=== PATIENT | female | born 1965 | race Caucasian/White ===

== ENCOUNTER → 2016-12-30 | Outpatient (CLI) | payer BC | LOC: MW.CHOBGYN 08:13 | PROVIDERS: ATTEND Nurse Practitioner Women's Health | DX: Z11.3 Encounter for screening for infections with a predominantly sexual mode of transmission (principal); E78.5 Hyperlipidemia, unspecified; R35.0 Frequency of micturition | CPT/HCPCS: 36415; 80061; 81001; 86592; 87086; 87389; 87491; 87591; G0478; 80305 ==

== ENCOUNTER 2017-07-09 16:28 | Emergency (ER) | payer BC ==
[2017-07-09] MEDS ORDERED: Azithromycin 250 MG Tab PO ONE (17:27)
[2017-07-09] MEDS ORDERED: cefTRIAXone 250 MG Vial IM ONE (17:27)
--- NOTE | 2017-07-09 17:34 | EDM.PDOC ---
ED HPI GENERAL MEDICAL PROBLEM - General Chief Complaint: Genitourinary Problem Stated Complaint: UNK Time Seen by Provider: 07/09/17 17:04 - History of Present Illness INITIAL COMMENTS - FREE TEXT/NARRATIVE: HISTORY AND PHYSICAL: History of present illness: The patient is a healthy 51-year-old female with a history of hypertension who presents for evaluation of a lesion in her pubic area that she is concerned about. She noticed this lesion more than a week ago and she thought maybe was an ingrown hair so she squeezed it. Nothing came out and the lesion persisted. It has not been painful and it has not changed or grown in size. She is worried that is an STD. The patient has not had any systemic complaints of fever chills abdominal pain nausea vomiting diarrhea or urinary complaints. She has not had any vaginal discharge or abnormal discharge or abnormal bleeding from her vagina. The patient only has a history of a in the past and also did an Essure and has not had a period since. She thinks she might be going through perimenopausal symptoms but it is unclear as she is going through a divorce after over 30 years of marriage. The patient does admit that she did have sexual intercourse with her soon-to-be ex- about 5 weeks ago and she is concerned she might have contracted something as a result of that even that she has no symptomatology. She is very worried. She would like STD testing. She has never had an STD in the past and again this lesion that she is concerned about it is not painful or evolving Review of systems: As per history of present illness and below otherwise all systems reviewed and negative. Past medical history: As per history of present illness and as reviewed below otherwise noncontributory. Surgical history: As per history of present illness and as reviewed below otherwise noncontributory. Social history: No reported history of drug or alcohol abuse. Family history: As per history of present illness and as reviewed below otherwise noncontributory. Physical exam: HEENT: Atraumatic, normocephalic, negative for conjunctival pallor or scleral icterus, mucous membranes moist,neck supple, nontender, trachea midline. Lungs: Clear to auscultation, breath sounds equal bilaterally, chest nontender. Heart: S1S2, regular, rate and rhythm no overt murmurs Abdomen: Soft, nondistended, nontender. Negative for masses or hepatosplenomegaly. Negative for costovertebral tenderness. Pelvis: Stable nontender. Genitourinary: The perineal area was examined and there is a small skin tag like lesion with a stalk present in the center of the mons pubis area which is nonvesicular nontender and there is no erythema fluctuance or soft tissue swelling in the region. It measures approximately 0.5 cm Rectal: Deferred. Extremities: Atraumatic, negative for cords or calf pain. Neurovascular unremarkable. Neuro: Awake, alert, oriented. Cranial nerves II through XII unremarkable. Cerebellum unremarkable. Motor and sensory unremarkable throughout. Exam nonfocal. Diagnostics: Patient requested GC and chlamydia testing Therapeutics: Patient requested treatment with Rocephin and Zithromax given I discussed with this patient that this could be an early genital warts or just a simple skin tag but considering the circumstances and location I think it should be seen and removed by primary care. She is seen in our clinics regularly for her other medical problems so I will refer her back there for removal. She is comfortable with this care plan. Impression: Perineal lesion stable Definitive disposition and diagnosis as appropriate pending reevaluation and review of above. 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: , Other (See Below) Other OB/BYN History: C sections - Infectious Disease History Infectious Disease History: Reports: Chicken Pox - Past Surgical History Musculoskeletal Surgical History: Reports: Other (See Below) Other Musculoskeletal Surgeries/Procedures:: neck surgery Social & Family History - Tobacco Use Smoking Status *Q: Current Every Day Smoker Years of Tobacco use: 30 Packs/Tins Daily: 0.8 - Caffeine Use Caffeine Use: Reports: Coffee, Soda - Recreational Drug Use Recreational Drug Use: No ED ROS GENERAL - Review of Systems Review Of Systems: ROS reveals no pertinent complaints other than HPI. ED EXAM, GENERAL - Physical Exam Exam: See Below (See dictation) Course - Vital Signs Last Recorded V/S: Last Vital Signs Temp Pulse 65 07/09/17 16:36 Resp 12 09/10/17 16:36 BP 168/88 H 07/09/17 16:36 Pulse Ox 95 07/09/17 16:36 - Orders/Labs/Meds Orders: Active Orders 24 hr Category Date Time Status CHLAMYDIA TRACHOMATIS/GC AMPLF Stat Lab 07/09/17 17:26 Ordered Meds: Medications Discontinued Medications Generic Name Dose Route Start Last Admin Trade Name Freq PRN Reason Stop Dose Admin Azithromycin 1,000 mg 07/09/17 17:27 Zithromax PO 07/09/17 17:28 ONETIME ONE Ceftriaxone Sodium 250 mg 07/09/17 17:27 Rocephin IM 07/09/17 17:28 ONETIME ONE Departure - Departure Time of Disposition: 17:33 Disposition: Home, Self-Care 01 Condition: Good Clinical Impression: Skin lesion - Discharge Information Referrals: Ashwini Freitas DIRECTOR OF CASINO [Primary Care Provider] - Additional Instructions: The following information is given to patients seen in the emergency department who are being discharged to home. This information is to outline your options for follow-up care. We provide all patients seen in our emergency department with a follow-up referral. The need for follow-up, as well as the timing and circumstances, are variable depending upon the specifics of your emergency department visit. If you don't have a primary care physician on staff, we will provide you with a referral. We always advise you to contact your personal physician following an emergency department visit to inform them of the circumstance of the visit and for follow-up with them and/or the need for any referrals to a consulting specialist. The emergency department will also refer you to a specialist when appropriate. This referral assures that you have the opportunity for followup care with a specialist. All of these measure are taken in an effort to provide you with optimal care, which includes your followup. Under all circumstances we always encourage you to contact your private physician who remains a resource for coordinating your care. When calling for followup care, please make the office aware that this follow-up is from your recent emergency room visit. If for any reason you are refused follow-up, please contact the [facility] emergency department at and ask to speak to the emergency department charge nurse. [facility] [address] [place] [address] Please contact your provider in the clinic to have reevaluation and removal of the skin lesion that you are presented with. Please return to ER as needed and as discussed. Remember that he will be contacted with your testing results if they show a positive test. - My Orders Last 24 Hours: My Active Orders 07/09/17 17:26 CHLAMYDIA TRACHOMATIS/GC AMPLF Stat - Assessment/Plan Last 24 Hours: My Active Orders 07/09/17 17:26 CHLAMYDIA TRACHOMATIS/GC AMPLF Stat
[2017-07-09] MEDS ORDERED: Lidocaine 2% 5 ML SDV INJECT ONE (17:42)
[2017-07-09] MEDS ORDERED: Lidocaine 1% 20 ML MDV INJECT ONE (17:45)
[2017-07-09] MEDS ORDERED: Lidocaine 1% 2 ML ONE (17:49)
[2017-07-09] MEDS ORDERED: Lidocaine 1% PF 2 ML SDV INJECT ONE (17:53)
[2017-07-09 18:50] VITALS: BP 165/78
== END 2017-07-09 18:15 | disposition home or self-care (01) ==
LOC: MW.ED 16:28
DX: L98.9 Disorder of the skin and subcutaneous tissue, unspecified (principal); I10 Essential (primary) hypertension; E78.00 Pure hypercholesterolemia, unspecified; F17.210 Nicotine dependence, cigarettes, uncomplicated
CPT/HCPCS: 87491; 87591; 96372; 99283; A9270; J0696

== ENCOUNTER 2021-08-16 10:54 | Day surgery (SDC) | payer BC ==
[~2021-08-16 10:54] MED LIST: Albuterol 0.083% 2.5 MG/3 ML Neb Soln NEB PRN; HYDROmorphone 1 MG/ML Syringe IVPUSH PRN; Metoclopramide 10 MG/2 ML SDV IVPUSH PRN; Morphine 2 MG/ML SYRINGE IVPUSH PRN; Naloxone 0.4 MG/ML SDV IVPUSH PRN; Ondansetron 4 MG/2 ML SDV IVPUSH PRN; fentaNYL 100 MCG/2 ML SDV IVPUSH PRN
[2021-08-16] MEDS ORDERED: Midazolam 1 MG/ML 2 ML SDV ONE (11:07)
[2021-08-16] MEDS ORDERED: Propofol 200 MG/20 ML SDV ONE (11:07)
[2021-08-16] MEDS ORDERED: fentaNYL 250 MCG/5 ML SDV ONE (11:07)
[2021-08-16] MEDS ORDERED: Dexamethasone 4 MG/ML 5 ML MDV ONE (11:08)
[2021-08-16] MEDS ORDERED: Ondansetron 4 MG/2 ML SDV ONE (11:08)
--- NOTE | 2021-08-16 12:08 | PCM.PREANE ---
Preanesthetic Assessment - Anesthesia/Transfusion/Family Hx Anesthesia History: Prior Anesthesia Without Reaction Transfusion History: No Prior Transfusion(s) - Review of Systems General: No Symptoms Pulmonary: No Symptoms Cardiovascular: No Symptoms Gastrointestinal: No Symptoms Neurological: No Symptoms Other: Reports: None - Physical Assessment NPO Status Date: 08/16/21 NPO Status Time: 00:00 Vital Signs: Last Vital Signs Temp 97.0 F 08/16/21 11:53 Pulse 72 08/16/21 11:53 Resp 16 08/16/21 11:53 BP 111/63 08/16/21 11:53 Pulse Ox 96 08/16/21 11:53 Height: 5 ft 4 in Weight: 125 lb ASA Class: 2 Mental Status: Alert & Oriented x3 Airway Class: Mallampati = 1 Dentition: Reports: Normal Dentition Thyro-Mental Finger Breadths: 3 Mouth Opening Finger Breadths: 3 ROM/Head Extension: Full Lungs: Clear to Auscultation, Normal Respiratory Effort Cardiovascular: Regular Rate, Regular Rhythm - Lab Values: Laboratory Last Values WBC 14.82 K/uL (4.0-11.0) H 08/16/21 11:32 RBC 4.42 M/uL (4.30-5.90) 08/16/21 11:32 Hgb 13.5 g/dL (12.0-16.0) 08/16/21 11:32 Hct 39.3 % (36.0-46.0) 08/16/21 11:32 MCV 88.9 fL (80.0-98.0) 08/16/21 11:32 MCH 30.5 pg (27.0-32.0) 08/16/21 11:32 MCHC 34.4 g/dL (31.0-37.0) 08/16/21 11:32 RDW Std Deviation 42.7 fl (28.0-62.0) 08/16/21 11:32 RDW Coeff of Luis Alberto 13 % (11.0-15.0) 08/16/21 11:32 Plt Count 394 K/uL (150-400) 08/16/21 11:32 MPV 9.50 fL (7.40-12.00) 08/16/21 11:32 Neut % (Auto) 77.5 % (48.0-80.0) 08/16/21 11:32 Lymph % (Auto) 14.6 % (16.0-40.0) L 08/16/21 11:32 [place] % (Auto) 6.5 % (0.0-15.0) 08/16/21 11:32 Eos % (Auto) 1.3 % (0.0-7.0) 08/16/21 11:32 Baso % (Auto) 0.1 % (0.0-1.5) 08/16/21 11:32 Neut # (Auto) 11.5 K/uL (1.4-5.7) H 08/16/21 11:32 Lymph # (Auto) 2.2 K/uL (0.6-2.4) 08/16/21 11:32 [place] # (Auto) 1.0 K/uL (0.0-0.8) H 08/16/21 11:32 Eos # (Auto) 0.2 K/uL (0.0-0.7) 08/16/21 11:32 Baso # (Auto) 0.0 K/uL (0.0-0.1) 08/16/21 11:32 Nucleated RBC % 0.0 /100WBC 08/16/21 11:32 Nucleated RBCs # 0 K/uL 08/16/21 11:32 - Allergies Allergies/Adverse Reactions: Allergies Allergy/AdvReac Type Severity Reaction Status Date / Time No Known Allergies Allergy Verified 08/13/21 09:09 PreAnesthesia Questionnaire HEENT History: Reports: Other (See Below) Other HEENT History: wears glasses, Cardiovascular History: Reports: Arrhythmia, High Cholesterol, Hypertension Respiratory History: Reports: None Gastrointestinal History: Reports: None Genitourinary History: Reports: None 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: Musculoskeletal History: Reports: Back Pain, Chronic, Neck Pain, Chronic Neurological History: Reports: Concussion Psychiatric History: Reports: PTSD Endocrine/Metabolic History: Reports: None Hematologic History: Reports: Other (See Below) Other Hematologic History: "my white count keeps rising", going to see medical physics teacher in [place] Immunologic History: Reports: None Oncologic (Cancer) History: Reports: Other (See Below) Other Oncologic History: cervical dysplagia Dermatologic History: Reports: None - Infectious Disease History Infectious Disease History: Reports: Chicken Pox - Past Surgical History Head Surgeries/Procedures: Reports: None HEENT Surgical History: Reports: None Cardiovascular Surgical History: Reports: None Respiratory Surgical History: Reports: None GI Surgical History: Reports: None Female Surgical History: Reports: Breast Biopsy, Section, Other (See Below) Other Female Surgeries/Procedures: ESSURE Endocrine Surgical History: Reports: None Neurological Surgical History: Reports: C-Spine Other Neurological Surgeries/Procedures: neck fusion Musculoskeletal Surgical History: Reports: None Oncologic Surgical History: Reports: None Dermatological Surgical History: Reports: None - SUBSTANCE USE Tobacco Use Status *Q: Current Every Day Tobacco User Tobacco Use Within Last Twelve Months: Cigarettes - HOME MEDS Home Medications: Home Meds Metoprolol Succinate 50 mg PO QAM 07/09/17 [History] Pravastatin Sodium 80 mg PO DAILY 07/09/17 [History] Ascorbic Acid/Multivit-Min [Emergen-C Immune Plus Packet] 1 packet PO DAILY 08/13/21 [History] Cyanocobalamin (Vitamin B-12) [Vitamin B-12] 1 tab PO DAILY 08/13/21 [History] - CURRENT (IN HOUSE) MEDS Current Meds: Current Medications Albuterol (Albuterol 0.083% 2.5 Mg/3 Ml Neb Soln) 2.5 mg NEB ONETIME PRN PRN Reason: Wheezing Droperidol (Droperidol 5 Mg/2 Ml Sdv) 0.625 mg IVPUSH ONETIME PRN PRN Reason: Nausea/Vomiting Fentanyl (Fentanyl 100 Mcg/2 Ml Sdv) 50 mcg IVPUSH Q5M PRN PRN Reason: Pain (mild 1-3) Hydromorphone HCl (Hydromorphone 1 Mg/Ml Syringe) 1 mg IVPUSH Q10M PRN PRN Reason: Pain (moderate 4-6) Metoclopramide HCl (Metoclopramide 10 Mg/2 Ml Sdv) 10 mg IVPUSH ONETIME PRN PRN Reason: Nausea/Vomiting Morphine Sulfate (Morphine 2 Mg/Ml Syringe) 2 mg IVPUSH Q10M PRN PRN Reason: Pain (severe 7-10) Naloxone HCl (Naloxone 0.4 Mg/Ml Sdv) 0.1 mg IVPUSH ASDIRECTED PRN PRN Reason: Respiratory Depression Ondansetron HCl (Ondansetron 4 Mg/2 Ml Sdv) 4 mg IVPUSH ONETIME PRN PRN Reason: Nausea/Vomiting Discontinued Medications Dexamethasone (Dexamethasone 4 Mg/Ml 5 Ml Mdv) Confirm Administered Dose 20 mg .ROUTE .STK-MED ONE Stop: 08/16/21 11:09 Fentanyl (Fentanyl 250 Mcg/5 Ml Sdv) Confirm Administered Dose 250 mcg .ROUTE .STK-MED ONE Stop: 08/16/21 11:08 Lidocaine HCl (Lidocaine 1% 5 Ml Sdv) Confirm Administered Dose 5 ml .ROUTE .STK-MED ONE Stop: 08/16/21 11:09 Midazolam HCl (Midazolam 1 Mg/Ml 2 Ml Sdv) Confirm Administered Dose 2 mg .ROUTE .STK-MED ONE Stop: 08/16/21 11:08 Ondansetron HCl (Ondansetron 4 Mg/2 Ml Sdv) Confirm Administered Dose 4 mg .ROUTE .STK-MED ONE Stop: 08/16/21 11:09 Propofol (Propofol 200 Mg/20 Ml Sdv) Confirm Administered Dose 200 mg .ROUTE .STK-MED ONE Stop: 08/16/21 11:08
--- NOTE | 2021-08-16 14:01 | PCM.OPNOTE ---
- General Post-Op/Procedure Note Date of Surgery/Procedure: 08/16/21 Operative Procedure(s): LEEP Findings: transformation zone entirely seen, there is an erythemetous anterior lip, non- staining with Lugols. The remainder of the ectocervix appears normal, under colposcopic examination with acetic acid and with Lugols. Pre Op Diagnosis: severe dysplasia Post-Op Diagnosis: Same Anesthesia Technique: General LMA Primary Surgeon: Akilah Caal Anesthesia Provider: Chriss Oliva Mushroom Spawn Maker: Nilson Yu Pathology: ectocervix open at 9 o'clock; right ectocervix; endocervix; anterior endocervix; endocervical curettings. EBL in mLs: 10 Complications: None known. Condition: Good
--- NOTE | 2021-08-16 14:12 | PCM.POSTAN ---
POST ANESTHESIA ASSESSMENT - MENTAL STATUS Mental Status: Alert, Oriented - VITAL SIGNS Vital Signs: Last Vital Signs Temp 36.3 C 08/16/21 13:47 Pulse 69 08/16/21 14:02 Resp 14 08/16/21 14:02 BP 116/67 08/16/21 14:02 Pulse Ox 98 08/16/21 14:02 - RESPIRATORY Respiratory Status: Respiratory Rate WNL, Airway Patent, O2 Saturation Stable - CARDIOVASCULAR CV Status: Pulse Rate WNL, Blood Pressure Stable - GASTROINTESTINAL GI Status: No Symptoms - POST OP HYDRATION Hydration Status: Adequate & Stable
--- NOTE | 2021-08-16 14:27 | PCM48HPAN ---
Post Anesthesia Note - EVALUATION WITHIN 48HRS OF ANESTHETIC Vital Signs in Normal Range: Yes Patient Participated in Evaluation: Yes Respiratory Function Stable: Yes Airway Patent: Yes Cardiovascular Function Stable: Yes Hydration Status Stable: Yes Pain Control Satisfactory: Yes Nausea and Vomiting Control Satisfactory: Yes Mental Status Recovered: Yes Vital Signs: Last Vital Signs Temp 36.2 C 08/16/21 14:10 Pulse 74 08/16/21 14:25 Resp 14 08/16/21 14:25 BP 116/58 L 08/16/21 14:25 Pulse Ox 98 08/16/21 14:25 - COMMENTS/OBSERVATIONS Free Text/Narrative:: Denies pain or nausea. States she would like to go home and be in her own bed.
[2021-08-16 14:45] VITALS: BP 109/58; PULSE 76
--- NOTE | 2021-08-17 11:57 | OR ---
SURGEON: Akilah Caal M.D. DATE OF PROCEDURE: 08/16/2021 PREOPERATIVE DIAGNOSIS: Cervical intraepithelial neoplasia 3. POSTOPERATIVE DIAGNOSIS: Cervical intraepithelial neoplasia 3. PROCEDURE: Loop electrode excisional procedure. PRIMARY SURGEON: Akilah Caal MD ANESTHESIA: General LMA, cervical block. ESTIMATED BLOOD LOSS: Less than 10 mL. FINDINGS: The ectocervix had an erythematous lip at the anterior cervical os. Upon colposcopic evaluation in the OR after application of dilute acetic acid, there was actually no acetowhite epithelium, just the area of erythema, and after application of Lugol's solution, the nonstaining area was the area of erythema. COMPLICATIONS: None known. DISPOSITION: Stable to Recovery. SPECIMENS: Ectocervix open at 9 o'clock, right ectocervix, endocervix and anterior endocervix, endocervical curettings. BRIEF HISTORY: This is a 55-year-old female who had an atypical squamous cell, cannot rule out or favor high-grade Pap smear with cervical biopsies showing PHILIPPE 2 and 3. She had prior normal Paps in 2018 and 2014 as well as 2011 in our chart. Due to the PHILIPPE 3, I recommend proceeding with a loop electrode excisional procedure of the cervix. She is currently under evaluation for an elevated white blood cell count. She is very concerned this may be the cause of her elevated white blood cell count is due to her cervical dysplasia and she is very worried that she has cancer. I reassured her that this would not be causing the elevation in WBC and she should continue with that workup. Risks discussed including bleeding infection injury to surrounding organs were discussed and she desires to proceed with LEEP. DESCRIPTION OF PROCEDURE: With the patient in the dorsal lithotomy position under IV sedation appropriate time out was held and the perineum was draped. She had voided prior to entering the OR, SCD were in place and working. Insulated speculum was placed in the vagina and the cervix was examined with the colposcopy before and after application with acetic acid with the findings as noted above. Lugol's solution was applied and the non-staining area was identified. With cautery at pure cut setting of 60 villatoro the ectocervix was excised. A smaller loop was utilized for the endocervix. The endocervical canal was then curetted with box curet and the cells collected with cytobrush all specimens were labeled and sent to pathology. The base was then cauterized with a ball tip, pure cautery 40 villatoro and Monsel's solution applied. The cervix was hemostatic. The speculum was removed from the vagina, final sponge, needle and instrument count were reported as correct. There were no known complications, the patient was transferred to recovery in good condition. JOSE MIGUEL GUERRERO /[id number] MTDD
== END 2021-08-16 14:46 | disposition home or self-care (01) ==
LOC: MW.SDS 10:54
PROVIDERS: ATTEND Obstetrics & Gynecology
DX: N87.0 Mild cervical dysplasia (principal); I10 Essential (primary) hypertension; E78.00 Pure hypercholesterolemia, unspecified; F17.210 Nicotine dependence, cigarettes, uncomplicated; Z79.899 Other long term (current) drug therapy; Z98.890 Other specified postprocedural states
CPT/HCPCS: 36415; 57522; 85025; 88305; J1100; J2250; J2405; J2704; J3010; 00940

== ENCOUNTER 2024-11-26 12:38 | Emergency (ER) | payer BC ==
[2024-11-26 13:11] LABS: BASOPHILS ABSOLUTE AUTO 0.05 K/uL (0.00-0.20); BASOPHILS PERCENT AUTO 0.4 % (0.0-1.0); EOSINOPHILS PERCENT AUTO 2.1 % (0.0-6.0); HEMATOCRIT 38.8 % (37.0-47.0); IMMATURE GRAN ABSOLUTE AUTO 0.05 K/uL (0.00-0.05); IMMATURE GRAN PERCENT AUTO 0.4 % (0.0-0.4); LYMPHOCYTES ABSOLUTE AUTO 2.37 K/uL (1.00-4.80); LYMPHOCYTES PERCENT AUTO 16.9 % (24.0-44.0); MEAN CORPUSCULAR HEMOGLOBIN 29.7 pg (28.0-32.0); MEAN CORPUSCULAR HGB CONC 33.5 g/dL (32.0-36.0); MEAN CORPUSCULAR VOLUME 88.6 fL (83.0-99.0); MEAN PLATELET VOLUME 9.2 fL (9.4-12.3); MONOCYTES ABSOLUTE AUTO 0.95 K/uL (0.00-0.80); MONOCYTES PERCENT AUTO 6.8 % (0.0-8.0); NEUTROPHILS ABSOLUTE AUTO 10.33 K/uL (1.80-7.70); NEUTROPHILS PERCENT AUTO 73.4 % (41.0-71.0); PLATELET COUNT,PLT 290 K/uL (150-400); RED BLOOD CELL COUNT 4.38 M/uL (4.10-5.30); WHITE BLOOD CELL COUNT,WBC 14.05 K/uL (3.9-11.3)
[2024-11-26 14:08] LABS: A/G RATIO 1.2 (0.9-1.6); ACETAMINOPHEN <2.0 ug/mL; ALANINE AMINOTRANSFERASE,ALT 16 IU/L (14-63); ALKALINE PHOSPHATASE 78 U/L (46-116); ASPARTATE AMNIOTRANSFERASE,AST 8 IU/L (15-37); BILIRUBIN TOTAL 0.4 mg/dL (0.2-1.0); BLOOD UREA NITROGEN,BUN 7 mg/dL (7.0-18.0); CALCIUM 9.4 mg/dL (8.5-10.1); CARBON DIOXIDE,CO2 25.5 mmol/L (21.0-32.0); CHLORIDE,CL 104 mmol/L (98-107); CREATININE 0.8 mg/dL (0.6-1.0); EST CRCL DRUG DOSING (CG) 63.41 mL/min; GLUCOSE RANDOM 103 mg/dL (74-106); POTASSIUM,K 4.3 mmol/L (3.5-5.1); PROTEIN TOTAL,TP 7.4 g/dL (6.4-8.2); SALICYLATE 6.7 mg/dL (0.0-20.0); SODIUM,NA 139 mmol/L (136-145); T3 FREE 2.67 pg/mL (2.18-3.98); TSH ULTRASENSITIVE 2.71 uIU/mL (0.36-3.74)
[2024-11-26 14:09] LABS: ESTIMATED GFR 85 mL/min (>60); ETHANOL BLOOD MEDICAL < 3.0 mg/dL
[2024-11-26 14:14] LABS: APPEARANCE,URINE CLEAR; BILIRUBIN,URINE NEGATIVE (NEGATIVE); COLOR,URINE YELLOW; GLUCOSE,URINE NEGATIVE (NEGATIVE); KETONES,URINE NEGATIVE (NEGATIVE); LEUKOCYTE ESTERASE,URINE NEGATIVE (NEGATIVE); NITRITE,URINE NEGATIVE (NEGATIVE); OCCULT BLOOD,URINE NEGATIVE (NEGATIVE); PH,URINE 6.5 (5.0-8.0); PROTEIN,URINE NEGATIVE (NEGATIVE); UROBILINOGEN,URINE 0.2 EU/dL (<2.0)
[2024-11-26 14:24] LABS: AMPHETAMINES SCREEN, URINE NEGATIVE (CUTOFF=500); BARBITURATE SCREEN,URINE NEGATIVE (CUTOFF=200); BENZODIAZEPINES SCREEN,URINE NEGATIVE (CUTOFF=150); BUPRENORPHINE SCREEN,URINE NEGATIVE (CUTOFF=10); METHADONE SCREEN, URINE NEGATIVE (CUTOFF=200); METHAMPHETAMINES SCREEN, URINE NEGATIVE (CUTOFF=500); OXYCODONE SCREEN,URINE NEGATIVE (CUT0FF=100); PCP SCREEN,URINE NEGATIVE (CUTOFF=25); THC SCREEN,URINE 20 NG/ML NEGATIVE (CUTOFF=50)
[2024-11-26] MEDS: Lisinopril 10 MG Tab PO ONE (15:04)
[2024-11-26] MEDS ORDERED: Metoprolol Tartrate 50 MG Tab PO ONE (15:39)
[2024-11-26] MEDS ORDERED: Metoprolol Succinate 100 MG Tab.ER PO ONE (15:48)
[2024-11-26 16:13] VITALS: BP 165/83; PULSE 75
[2024-11-26] MEDS: Metoprolol Tartrate 50 MG Tab PO ONE (16:13)
== END 2024-11-26 16:16 ==
LOC: MW.ED 12:38
DX: F22 Delusional disorders (principal); R25.9 Unspecified abnormal involuntary movements; I10 Essential (primary) hypertension; E78.00 Pure hypercholesterolemia, unspecified; Z79.899 Other long term (current) drug therapy
CPT/HCPCS: 36415; 80053; 80143; 80179; 80305; 80307; 81003; 83735; 84439; 84443; 84481; 85025; 93005; 99285; A9270; 93010